=== PATIENT | female | born 1970 | race Caucasian/White ===

== ENCOUNTER 2022-07-03 09:00 | Day surgery (SDC) | payer OTHER ==
[~2022-07-03 09:00] MED LIST: COMMUNICATION ORDER MC ONE
== END 2022-07-03 10:03 | disposition home or self-care (01) ==
LOC: MDS 09:00 → MMU 09:00 → MDS 10:03
PROVIDERS: ATTEND Obstetrics & Gynecology
DX: N87.1 Moderate cervical dysplasia (principal); Z20.822 Contact with and (suspected) exposure to COVID-19; Z53.8 Procedure and treatment not carried out for other reasons

== ENCOUNTER 2022-07-25 05:30 | Day surgery (SDC) | payer OTHER ==
[~2022-07-25] VITALS: Ht 157.5 cm; Wt 74.8 kg
[2022-07-25] MEDS ORDERED: fentaNYL citrate 0.05 MG/ML VIAL ONE (08:10)
[2022-07-25] MEDS ORDERED: fentaNYL citrate 0.05 MG/ML - 50mL vial IV ONE (08:11)
[2022-07-25] MEDS ORDERED: METOCLOPRAMIDE 10 MG/2 ML INJ VIAL ONE (08:11)
[2022-07-25] MEDS ORDERED: SUCCINYLCHOLINE CHLORIDE 200 MG/10 ML VIAL IVP ONE ×2 (08:11→08:52)
[2022-07-25] MEDS ORDERED: ONDANSETRON 4 MG/2 ML VIAL ONE ×2 (08:11→08:52)
[2022-07-25] MEDS ORDERED: PROPOFOL 200 MG/20 ML VIAL IV ONE ×2 (08:11→08:51)
[2022-07-25] MEDS ORDERED: POTASSIUM IODIDE/IODINE 5% 14 ML BTL ONE (08:24)
[2022-07-25] MEDS ORDERED: KETOROLAC 30 MG/ML VIAL ONE (08:52)
[2022-07-25] MEDS ORDERED: hydrALAZINE 20 MG/ML VIAL IVP PRN (09:02)
[2022-07-25] MEDS ORDERED: LABETALOL 20 MG/4 ML VIAL IVP PRN (09:02)
[2022-07-25] MEDS ORDERED: HYDROmorphone 1 MG/ML AMP IVP PRN (09:05)
[2022-07-25] MEDS ORDERED: LACTATED RINGERS 1,000 ML IV SCH (09:05)
== END 2022-07-25 10:21 | disposition home or self-care (01) ==
LOC: MDS 05:30 → MMU 06:25 → MDS 10:21
PROVIDERS: ATTEND Obstetrics & Gynecology
DX: N87.1 Moderate cervical dysplasia (principal); Z20.822 Contact with and (suspected) exposure to COVID-19
CPT/HCPCS: 57522; 87426; J0330; J1885; J2405; J2704; J2765; J3010